=== PATIENT | female | born 1995 | race Caucasian/White ===

== ENCOUNTER 2021-12-03 22:26 | Emergency (ER) | payer BC, MEDICAID ==
[~2021-12-03] VITALS: Ht 154.9 cm; Wt 45.4 kg
[2021-12-03 22:47] VITALS: BP 106/67
--- NOTE | 2021-12-03 22:56 | NUR ---
TO LOBBY AFTER TRIAGE
--- NOTE | 2021-12-03 23:00 | NUR ---
Dr. Aguilar examining patient.
[2021-12-03] MEDS ORDERED: cefTRIAXone 1,000 MG in LIDOCAINE MPF 1% 2.1 ML IM ONE (23:05)
[2021-12-03] MEDS ORDERED: DOXY-487 PO (23:08)
--- NOTE | 2021-12-03 23:43 | NUR ---
Lonny alexander in [facility] - 12/04/21 at 0038 by ERNESTO PT TAKEN TO CHAIR
--- NOTE | 2021-12-04 00:05 | NUR ---
CALLED BACK TO TRIAGE FOR ADDITIONAL URINE, NO ANSWER. PT LEFT PRIOR TO RECEIVING RX AND DCI
== END 2021-12-04 00:05 | disposition home or self-care (01) ==
LOC: MED 22:26
DX: A54.9 Gonococcal infection, unspecified (principal); A74.9 Chlamydial infection, unspecified; N89.8 Other specified noninflammatory disorders of vagina; Z79.2 Long term (current) use of antibiotics
CPT/HCPCS: 99283